=== PATIENT | male | born 1985 | race Caucasian/White ===

== ENCOUNTER 2019-04-18 18:42 | Inpatient (IN) | payer OTHER ==
[2019-04-18 21:17] VITALS: BMI 25.3
--- NOTE | 2019-04-18 21:53 | HP ---
COWS - Scale Resting Pulse: 0= [place] 80 or Below Sweatin=Flushed/Facial Moisture Restless Observation: 1= Difficult to Sit Still Pupil Size: 1= Pupils >than Normal Bone or Joint Aches: 4=Acute Joint/Muscle Pain Runny Nose/ Eye Tearin= Runny Nose/Eyes GI Upset > 30mins: 3= Vomiting/Diarrhea (vomiting x 3, [id number] x 2) Tremor Observation: 2= Slight Tremor Visible Yawning Observation: 1= 1-2x During Session Anxiety or Irritability: 2=Irritable/Anxious Goose Flesh Skin: 0=Smooth Skin COWS Score: 18 CIWA Score - Admission Criteria OASAS Guidelines: Admission for Medically Managed Detox: Requires at least one of the followin. CIWA greater than 12 2. Seizures within the past 24 hours 3. Delirium tremens within the past 24 hours 4. Hallucinations within the past 24 hours 5. Acute intervention needed for co occurring medical disorder 6. Acute intervention needed for co occurring psychiatric disorder 7. Severe withdrawal that cannot be handled at a lower level of care (continued vomiting, continued diarrhea, abnormal vital signs) requiring intravenous medication and/or fluids 8. Admission ROS [facility] Chief Complaint: Heroin withdrawal symptoms Allergies/Adverse Reactions: Allergies Allergy/AdvReac Type Severity Reaction Status Date / Time No Known Allergies Allergy Verified 04/18/19 23:27 History of Present Illness: 33 years old male with 8 years of heroin dependence is seeking admission to detox. Patient reports 5 years of sobriety. He reports history of seizures, GERD , Hyperlipidemia and anxiety. Patient denies suicide attempt and suicidal ideation at this time Exam Limitations: No Limitations - Ebola screening Have you traveled outside of the country in the last 21 days: No (N) Have you had contact with anyone from an Ebola affected area: No Do you have a fever: No - Review of Systems Constitutional: Chills, Malaise, Night Sweats, Changes in sleep EENT: reports: No Symptoms Reported, Nose Congestion Respiratory: reports: No Symptoms reported Cardiac: reports: No Symptoms Reported GI: reports: Poor Appetite, Poor Fluid Intake, Vomiting, Abdominal cramping : reports: No Symptoms Reported Musculoskeletal: reports: Back Pain, Joint Pain, Muscle Pain, Neck Pain Integumentary: reports: Dryness, Flushing Neuro: reports: Headache, Tremors, Weakness Endocrine: reports: No Symptoms Reported Hematology: reports: No Symptoms Reported Psychiatric: reports: Anxious, Depressed Other Systems: Reviewed and Negative Patient History - Patient Medical History Hx Anemia: No Hx Asthma: No Hx Chronic Obstructive Pulmonary Disease (COPD): No Hx Cancer: No Hx Cardiac Disorders: No Hx Congestive Heart Failure: No Hx Hypertension: No Hx Hypercholesterolemia: Yes (Not on medication) Hx Pacemaker: No HX Cerebrovascular Accident: No Hx Seizures: Yes (Klonopin and Keppra) Hx Gastrointestinal Disorders: Yes (GERD - Not on [id number]) Hx Human Immunodeficiency Virus (HIV): No (Negative 2018) Hx Depression: Yes (Not on medication) Hx Suicide Attempt: No (Denies suicidal ideatio at this time) - Patient Surgical History Past Surgical History: No - PPD History Previous Implant?: Yes Documented Results: Negative w/o proof Implanted On Prior [facility] Admission?: No PPD to be Administered?: Yes - Reproductive History Patient is a Female of Child Bearing Age (11 -55 yrs old): No (male) - Smoking Cessation Smoking history: Current every day smoker Have you smoked in the past 12 months: Yes Aproximately how many cigarettes per day: 4 Hx Chewing Tobacco Use: No Initiated information on smoking cessation: Yes 'Breaking Loose' booklet given: 04/18/19 - Substance & Tx. History Hx Alcohol Use: No Hx Substance Use: Yes Substance Use Type: Cocaine, Heroin, Marijuana, Opiates Hx Substance Use Treatment: Yes (Unknown) - Substances abused Cocaine Substance route: Injection Frequency: 3-6 times per week Amount used: 30 cc Age of first use: 18 Date of last use: 04/18/19 Heroin Substance route: Inhalation Frequency: Daily Amount used: 1 gram Age of first use: 28 Date of last use: 04/18/19 Family Disease History - Family Disease History Family History: Denies Admission Physical Exam BHS - Vital Signs Vital Signs: Vital Signs - 24 hr 04/18/19 21:08 Temperature 97.1 F L Pulse Rate 63 Respiratory 18 Rate Blood Pressure 131/67 - Physical General Appearance: Yes: Severe Distress, Tremorous, Anxious HEENTM: Yes: Within Normal Limits, Normal Voice Respiratory: Yes: Lungs Clear, Normal Breath Sounds, No Respiratory Distress Neck: Yes: Supple Breast: Yes: Breast Exam Deferred Cardiology: Yes: Regular Rhythm, Regular Rate Abdominal: Yes: Normal Bowel Sounds Genitourinary: Yes: Within Normal Limits Back: Yes: Normal Inspection Musculoskeletal: Yes: Within Normal Limits, Gait Steady Extremities: Yes: Tremors Neurological: Yes: Normal Response Integumentary: Yes: Warm Lymphatic: Yes: Within Normal Limits - Diagnostic (1) Alcohol dependence with uncomplicated withdrawal Current Visit: Yes Status: Acute (2) Seizure Current Visit: Yes Status: Chronic (3) Hyperlipidemia Current Visit: Yes Status: Chronic Qualifiers: Hyperlipidemia type: unspecified Qualified Code(s): E78.5 - Hyperlipidemia , unspecified (4) Anxiety Current Visit: Yes Status: Chronic (5) GERD (gastroesophageal reflux disease) Current Visit: Yes Status: Chronic Qualifiers: Esophagitis presence: without esophagitis Qualified Code(s): K21.9 - Gastro -esophageal reflux disease without esophagitis Cleared for Admission S - Detox or Rehab [facility] Level of Care: Medically Managed Detox Regimen/Protocol: Methadone Breathalyzer - Breathalyzer Breathalyzer: 0 Urine Drug Screen - Test Device Lot number: [id number] Expiration date: 01/24/21 - Control Is test valid?: Yes - Results Drug screen NEGATIVE: No Urine drug screen results: THC-Marijuana, OLIVIER-Cocaine, FEN-Fentanyl, MOP-Opiates , OXY-Oxycodone, BZO-Benzodiazepines Inpatient Rehab Admission - Rehab Decision to Admit Inpatient rehab admission?: No
[2019-04-18] MEDS ORDERED: NICOTINE POLACRILEX 2 MG GUM BUC PRN (22:03)
[2019-04-18] MEDS ORDERED: MAGNESIUM CITRATE 300 ML BOTTLE PO PRN (22:03)
[2019-04-18] MEDS ORDERED: IBUPROFEN 400 MG TABLET (FP) PO PRN (22:03)
[2019-04-18] MEDS ORDERED: MENTHOL/PHENOL 1 EACH UD MM PRN (22:03)
[2019-04-18] MEDS ORDERED: MAG HYDROX/AL HYDROX/SIMETH 30 ML UNIT-DOSE CUP PO PRN (22:03)
[2019-04-18] MEDS ORDERED: BISMUTH SUBSALICYLATE 524 MG/30 ML UD PO PRN (22:03)
[2019-04-18] MEDS ORDERED: cloNIDine HCL 0.1 MG TABLET PO PRN (22:03)
[2019-04-18] MEDS ORDERED: MAGNESIUM HYDROX 2400MG/30ML ORAL SUSPENSION 30 ML CUP PO PRN (22:03)
[2019-04-18] MEDS ORDERED: ACETAMINOPHEN 325 MG TABLET (FP) PO PRN ×2 (22:03)
[2019-04-18] MEDS ORDERED: METHADONE HCL 10 MG TABLET (FOR DETOX USE ONLY) PO ONE (22:03)
[2019-04-18] MEDS ORDERED: levETIRAcetam 500 MG TABLET (FP) PO SCH (22:45)
[2019-04-18] MEDS: METHOCARBAMOL 500 MG TABLET PO PRN (23:22)
[2019-04-18] MEDS: hydrOXYzine HCL 25 MG TABLET (FP) PO PRN (23:24)
[2019-04-19] MEDS ORDERED: METHADONE HCL 5 MG TABLET (FOR DETOX USE ONLY) ONE (08:36)
[2019-04-19] MEDS ORDERED: METHADONE HCL 10 MG TABLET (FOR DETOX USE ONLY) ONE (08:36)
[2019-04-19] MEDS ORDERED: METHADONE (DETOX) 20 MG, METHADONE (DETOX) 5 MG PO ONE (10:00)
[2019-04-19] MEDS: PRENATAL VITAMINS W/ FOLIC ACID TABLET (FP) PO SCH (10:14)
[2019-04-19] MEDS: NICOTINE 14 MG/24 HOURS TOPICAL PATCH TD SCH (10:16)
[2019-04-19 11:03] LABS: HEMATOCRIT 37.5 % (35.4-49); HEMOGLOBIN 12.5 GM/dL (11.7-16.9); MCH 27.9 pg (25.7-33.7); MCHC 33.5 g/dl (32.0-35.9); MEAN CELL VOLUME 83.3 fl (80-96); MEAN PLT VOLUME 10.5 fl (7.5-11.1); RDW 14.4 % (11.9-15.9); WHITE BLOOD COUNT 6.7 K/mm3 (4.0-10.0)
[2019-04-19 11:10] LABS: ALBUMIN 3.3 g/dl (3.4-5.0); BILIRUBIN,TOTAL 0.4 mg/dL (0.2-1); BLOOD UREA NITROGEN 10.6 mg/dL (7-18); CREATININE 0.9 mg/dL (0.55-1.3); POTASSIUM 4.4 mmol/L (3.5-5.1); TOT PROT 6.3 g/dl (6.4-8.2)
[2019-04-19 11:26] LABS: PLATELET COUNT 186 K/MM3 (134-434)
[2019-04-19] MEDS: levETIRAcetam 500 MG TABLET (FP) PO SCH ×2 (12:10→22:50)
--- NOTE | 2019-04-19 12:20 | PN ---
BHS COWS - Scale Resting Pulse: 0= [place] 80 or Below Sweatin= Chills/Flushing Restless Observation: 0= Sits Still Pupil Size: 0= Normal to Room Light Bone or Joint Aches: 2= Severe Diffuse Aches Runny Nose/ Eye Tearin= Nasal Congestion GI Upset > 30mins: 0= None Tremor Observation of Outstretched Hands: 0= None Yawning Observation: 1= 1-2x During Session Anxiety or Irritability: 2=Irritable/Anxious Goose Flesh Skin: 3=Piloerection COWS Score: 10 BHS Progress Note (SOAP) Subjective: Anxious, Sweating, Fatigue, Body Aches. Objective: PATIENT A & O X 3. IN NO ACUTE DISTRESS. 04/19/19 12:17 Vital Signs Temperature 97.3 F L 04/19/19 09:11 Pulse Rate 50 L 04/19/19 09:11 Respiratory Rate 16 04/19/19 09:11 Blood Pressure 96/58 L 04/19/19 09:11 O2 Sat by Pulse Oximetry (%) Laboratory Tests 04/19/19 04/19/19 09:35 09:35 WBC 6.7 RBC 4.50 Hgb 12.5 Hct 37.5 MCV 83.3 MCH 27.9 MCHC 33.5 RDW 14.4 Plt Count 186 MPV 10.5 Sodium 142 Potassium 4.4 Chloride 106 Carbon Dioxide 31 Anion Gap 4 L BUN 10.6 Creatinine 0.9 Est GFR (CKD-EPI)AfAm 129.61 Est GFR (CKD-EPI)NonAf 111.83 Random Glucose 84 Calcium 9.0 Total Bilirubin 0.4 AST 19 ALT 24 Alkaline Phosphatase 78 Total Protein 6.3 L Albumin 3.3 L LABS NOTED. RESULTS OF DETOX ADMISSION LEVETIRACETAM, CLONAZEPAM, AND RPR PENDING. 04/19/19 12:19 Assessment: 04/19/19 12:19 WITHDRAWAL SYMPTOMS. 04/19/19 12:21 Plan: CONTINUE DETOX. INCREASE DAILY PO WATER INTAKE.
[2019-04-19] MEDS: THIAMINE HCL 100 MG TABLET (FP) PO SCH (22:50)
--- NOTE | 2019-04-20 09:21 | PN ---
BHS COWS - Scale Resting Pulse: 0= [place] 80 or Below Sweatin= Chills/Flushing Restless Observation: 0= Sits Still Pupil Size: 1= Pupils >than Normal Bone or Joint Aches: 1= Mild Discomfort Runny Nose/ Eye Tearin= Nasal Congestion GI Upset > 30mins: 1= Stomach Cramp Tremor Observation of Outstretched Hands: 1= Tremor [place], Not Seen Yawning Observation: 0= None Anxiety or Irritability: 2=Irritable/Anxious Goose Flesh Skin: 0=Smooth Skin COWS Score: 8 S Progress Note (SOAP) Subjective: 33 years old male admitted on 04/18/19 for acute opiate withdrawal sx management doing well with methadone detox regimen tolerate food and fluid well feeling tired and irritable limited conversation with staff provide information on medication assisted treatment as option Objective: 04/20/19 09:20 Vital Signs Temperature 96.8 F L 04/20/19 09:11 Pulse Rate 57 L 04/20/19 09:11 Respiratory Rate 18 04/20/19 09:11 Blood Pressure 108/60 04/20/19 09:11 O2 Sat by Pulse Oximetry (%) Laboratory Last Values WBC 6.7 K/mm3 (4.0-10.0) 04/19/19 09:35 RBC 4.50 M/mm3 (4.00-5.60) 04/19/19 09:35 Hgb 12.5 GM/dL (11.7-16.9) 04/19/19 09:35 Hct 37.5 % (35.4-49) 04/19/19 09:35 MCV 83.3 fl (80-96) 04/19/19 09:35 MCH 27.9 pg (25.7-33.7) 04/19/19 09:35 MCHC 33.5 g/dl (32.0-35.9) 04/19/19 09:35 RDW 14.4 % (11.9-15.9) 04/19/19 09:35 Plt Count 186 K/MM3 (134-434) 04/19/19 09:35 MPV 10.5 fl (7.5-11.1) 04/19/19 09:35 Sodium 142 mmol/L (136-145) 04/19/19 09:35 Potassium 4.4 mmol/L (3.5-5.1) 04/19/19 09:35 Chloride 106 mmol/L (98-107) 04/19/19 09:35 Carbon Dioxide 31 mmol/L (21-32) 04/19/19 09:35 Anion Gap 4 MMOL/L (8-16) L 04/19/19 09:35 BUN 10.6 mg/dL (7-18) 04/19/19 09:35 Creatinine 0.9 mg/dL (0.55-1.3) 04/19/19 09:35 Est GFR (CKD-EPI)AfAm 129.61 04/19/19 09:35 Est GFR (CKD-EPI)NonAf 111.83 04/19/19 09:35 Random Glucose 84 mg/dL (74-106) 04/19/19 09:35 Calcium 9.0 mg/dL (8.5-10.1) 04/19/19 09:35 Total Bilirubin 0.4 mg/dL (0.2-1) 04/19/19 09:35 AST 19 U/L (15-37) 04/19/19 09:35 ALT 24 U/L (13-61) 04/19/19 09:35 Alkaline Phosphatase 78 U/L (45-117) 04/19/19 09:35 Total Protein 6.3 g/dl (6.4-8.2) L 04/19/19 09:35 Albumin 3.3 g/dl (3.4-5.0) L 04/19/19 09:35 RPR Titer Nonreactive (NONREACTIVE) 04/19/19 09:35 lab noted Assessment: 04/20/19 09:21 opiate withdrawal sx Plan: continue methadone detox regimen
[2019-04-20] MEDS ORDERED: METHADONE HCL 10 MG TABLET (FOR DETOX USE ONLY) PO ONE ×2 (10:00→16:59)
[2019-04-20] MEDS: levETIRAcetam 500 MG TABLET (FP) PO SCH ×2 (13:10→22:50)
[2019-04-20] MEDS: NICOTINE 14 MG/24 HOURS TOPICAL PATCH TD SCH (13:11)
[2019-04-20] MEDS: PRENATAL VITAMINS W/ FOLIC ACID TABLET (FP) PO SCH (13:12)
[2019-04-20] MEDS: hydrOXYzine HCL 25 MG TABLET (FP) PO PRN (16:59)
[2019-04-20] MEDS: METHOCARBAMOL 500 MG TABLET PO PRN (16:59)
--- NOTE | 2019-04-20 17:02 | PN ---
BHS Progress Note Note: pt reported to not receive am dose methadone 20mg 1x dose 20mg re ordered resume taper tomorrow
[2019-04-20] MEDS: THIAMINE HCL 100 MG TABLET (FP) PO SCH (22:50)
[2019-04-21] MEDS: hydrOXYzine HCL 25 MG TABLET (FP) PO PRN ×2 (00:33→22:13)
[2019-04-21] MEDS ORDERED: METHADONE (DETOX) 10 MG, METHADONE (DETOX) 5 MG PO ONE ×2 (10:00→17:02)
--- NOTE | 2019-04-21 10:46 | PN ---
S COWS - Scale Resting Pulse: 0= [place] 80 or Below Sweatin= Chills/Flushing Restless Observation: 0= Sits Still Pupil Size: 1= Pupils >than Normal Bone or Joint Aches: 1= Mild Discomfort Runny Nose/ Eye Tearin= None GI Upset > 30mins: 1= Stomach Cramp Tremor Observation of Outstretched Hands: 1= Tremor [place], Not Seen Yawning Observation: 1= 1-2x During Session Anxiety or Irritability: 1=Feels Anxious/Irritable Goose Flesh Skin: 0=Smooth Skin COWS Score: 7 S Progress Note (SOAP) Subjective: 33 years old male admitted on 04/18/19 for acute opiate withdrawal sx management doing well with methadone detox regimen limited conversation with staff resting on bed prefers stay in bed today Objective: 04/21/19 10:44 Vital Signs Temperature 97.6 F 04/21/19 06:08 Pulse Rate 44 L 04/21/19 06:08 Respiratory Rate 18 04/21/19 06:30 Blood Pressure 101/57 L 04/21/19 06:08 O2 Sat by Pulse Oximetry (%) Laboratory Last Values WBC 6.7 K/mm3 (4.0-10.0) 04/19/19 09:35 RBC 4.50 M/mm3 (4.00-5.60) 04/19/19 09:35 Hgb 12.5 GM/dL (11.7-16.9) 04/19/19 09:35 Hct 37.5 % (35.4-49) 04/19/19 09:35 MCV 83.3 fl (80-96) 04/19/19 09:35 MCH 27.9 pg (25.7-33.7) 04/19/19 09:35 MCHC 33.5 g/dl (32.0-35.9) 04/19/19 09:35 RDW 14.4 % (11.9-15.9) 04/19/19 09:35 Plt Count 186 K/MM3 (134-434) 04/19/19 09:35 MPV 10.5 fl (7.5-11.1) 04/19/19 09:35 Sodium 142 mmol/L (136-145) 04/19/19 09:35 Potassium 4.4 mmol/L (3.5-5.1) 04/19/19 09:35 Chloride 106 mmol/L (98-107) 04/19/19 09:35 Carbon Dioxide 31 mmol/L (21-32) 04/19/19 09:35 Anion Gap 4 MMOL/L (8-16) L 04/19/19 09:35 BUN 10.6 mg/dL (7-18) 04/19/19 09:35 Creatinine 0.9 mg/dL (0.55-1.3) 04/19/19 09:35 Est GFR (CKD-EPI)AfAm 129.61 04/19/19 09:35 Est GFR (CKD-EPI)NonAf 111.83 04/19/19 09:35 Random Glucose 84 mg/dL (74-106) 04/19/19 09:35 Calcium 9.0 mg/dL (8.5-10.1) 04/19/19 09:35 Total Bilirubin 0.4 mg/dL (0.2-1) 04/19/19 09:35 AST 19 U/L (15-37) 04/19/19 09:35 ALT 24 U/L (13-61) 04/19/19 09:35 Alkaline Phosphatase 78 U/L (45-117) 04/19/19 09:35 Total Protein 6.3 g/dl (6.4-8.2) L 04/19/19 09:35 Albumin 3.3 g/dl (3.4-5.0) L 04/19/19 09:35 RPR Titer Nonreactive (NONREACTIVE) 04/19/19 09:35 lab noted Assessment: 04/21/19 10:44 opiate withdrawal sx alert irritable agitated Plan: continue methadone detox regimen
[2019-04-21] MEDS: NICOTINE 14 MG/24 HOURS TOPICAL PATCH TD SCH (12:09)
[2019-04-21] MEDS: PRENATAL VITAMINS W/ FOLIC ACID TABLET (FP) PO SCH (12:09)
[2019-04-21] MEDS: levETIRAcetam 500 MG TABLET (FP) PO SCH (12:09)
--- NOTE | 2019-04-21 13:03 | EKG ---
Test Reason : Blood Pressure : / mmHG Vent. Rate : 051 BPM Atrial Rate : 051 BPM P-R Int : 168 ms QRS Dur : 084 ms QT Int : 438 ms P-R-T Axes : 056 055 049 degrees QTc Int : 403 ms SINUS BRADYCARDIA OTHERWISE NORMAL ECG NO PREVIOUS ECGS AVAILABLE Confirmed by SUNG TERRELL, JEAN ([id number]) on 04/21/2019 1:02:24 PM Referred By: Eb Ramirez Confirmed By:JEAN ALMARAZ MD
[2019-04-21] MEDS ORDERED: METHADONE HCL 10 MG TABLET (FOR DETOX USE ONLY) ONE (16:31)
[2019-04-21] MEDS ORDERED: METHADONE HCL 5 MG TABLET (FOR DETOX USE ONLY) ONE (16:32)
[2019-04-21] MEDS: THIAMINE HCL 100 MG TABLET (FP) PO SCH (22:13)
[2019-04-21] MEDS: MELATONIN 5 MG TABLETS PO PRN (22:13)
[2019-04-22] MEDS: levETIRAcetam 500 MG TABLET (FP) PO SCH ×3 (01:23→22:09)
[2019-04-22] MEDS ORDERED: METHADONE HCL 10 MG TABLET (FOR DETOX USE ONLY) PO ONE ×2 (10:00→17:02)
--- NOTE | 2019-04-22 10:25 | PN ---
BHS COWS - Scale Resting Pulse: 0= [place] 80 or Below Sweatin= Chills/Flushing Restless Observation: 0= Sits Still Pupil Size: 0= Normal to Room Light Bone or Joint Aches: 1= Mild Discomfort Runny Nose/ Eye Tearin= None GI Upset > 30mins: 0= None Tremor Observation of Outstretched Hands: 1= Tremor [place], Not Seen Yawning Observation: 0= None Anxiety or Irritability: 1=Feels Anxious/Irritable Goose Flesh Skin: 0=Smooth Skin COWS Score: 4 BHS Progress Note (SOAP) Subjective: c/o methadone dosage "getting lower and lower" discuss methadone detox regimen and purpose of detox process encourage the patient to follow up with methadone maintenance program that methadone dosage could be tapered up to an appropriate dosage patient refuses to take methadone in the morning schedule adjusted to meet the patient's schedule Objective: 04/22/19 10:26 Vital Signs Temperature 97.4 F L 04/22/19 09:14 Pulse Rate 70 04/22/19 09:14 Respiratory Rate 18 04/22/19 09:14 Blood Pressure 117/68 04/22/19 09:14 O2 Sat by Pulse Oximetry (%) Laboratory Last Values WBC 6.7 K/mm3 (4.0-10.0) 04/19/19 09:35 RBC 4.50 M/mm3 (4.00-5.60) 04/19/19 09:35 Hgb 12.5 GM/dL (11.7-16.9) 04/19/19 09:35 Hct 37.5 % (35.4-49) 04/19/19 09:35 MCV 83.3 fl (80-96) 04/19/19 09:35 MCH 27.9 pg (25.7-33.7) 04/19/19 09:35 MCHC 33.5 g/dl (32.0-35.9) 04/19/19 09:35 RDW 14.4 % (11.9-15.9) 04/19/19 09:35 Plt Count 186 K/MM3 (134-434) 04/19/19 09:35 MPV 10.5 fl (7.5-11.1) 04/19/19 09:35 Sodium 142 mmol/L (136-145) 04/19/19 09:35 Potassium 4.4 mmol/L (3.5-5.1) 04/19/19 09:35 Chloride 106 mmol/L (98-107) 04/19/19 09:35 Carbon Dioxide 31 mmol/L (21-32) 04/19/19 09:35 Anion Gap 4 MMOL/L (8-16) L 04/19/19 09:35 BUN 10.6 mg/dL (7-18) 04/19/19 09:35 Creatinine 0.9 mg/dL (0.55-1.3) 04/19/19 09:35 Est GFR (CKD-EPI)AfAm 129.61 04/19/19 09:35 Est GFR (CKD-EPI)NonAf 111.83 04/19/19 09:35 Random Glucose 84 mg/dL (74-106) 04/19/19 09:35 Calcium 9.0 mg/dL (8.5-10.1) 04/19/19 09:35 Total Bilirubin 0.4 mg/dL (0.2-1) 04/19/19 09:35 AST 19 U/L (15-37) 04/19/19 09:35 ALT 24 U/L (13-61) 04/19/19 09:35 Alkaline Phosphatase 78 U/L (45-117) 04/19/19 09:35 Total Protein 6.3 g/dl (6.4-8.2) L 04/19/19 09:35 Albumin 3.3 g/dl (3.4-5.0) L 04/19/19 09:35 Levetiracetam 19.5 MCG/ML (10.0-40.0) 04/19/19 09:35 RPR Titer Nonreactive (NONREACTIVE) 04/19/19 09:35 lab noted Assessment: 04/22/19 10:27 opiate withdrawal sx alert oriented x 3 speech clearly goal directed behavior ambulating on hallway steady gait Plan: continue methadone detox regimen
[2019-04-22] MEDS: NICOTINE 14 MG/24 HOURS TOPICAL PATCH TD SCH (10:55)
[2019-04-22] MEDS: PRENATAL VITAMINS W/ FOLIC ACID TABLET (FP) PO SCH (10:55)
[2019-04-22] MEDS: hydrOXYzine HCL 25 MG TABLET (FP) PO PRN (20:29)
[2019-04-22] MEDS: MELATONIN 5 MG TABLETS PO PRN (22:09)
[2019-04-22] MEDS: THIAMINE HCL 100 MG TABLET (FP) PO SCH (22:09)
[2019-04-23] MEDS ORDERED: METHADONE HCL 5 MG TABLET (FOR DETOX USE ONLY) PO ONE (06:00)
[2019-04-23 06:12] VITALS: BP 100/46; PULSE 46; TEMP 97.7
--- NOTE | 2019-04-23 09:53 | DS ---
[facility] Detox Discharge Summary Admission Date: 04/18/19 Discharge Date: 04/23/19 - History Present History: Opioid Dependence Additional Comments: 33 years old male first admitted to [facility] on 04/18/19 for acute opiate withdrawal sx management doing well [facility] methadone detox regimen perfers medication to be taken afternoon modified schedule to meet the patient's preference no complication through out the detox stay patient is alert oriented x 3 steady gait speech clearly coherently had breakfast and showered strong recommend the patient seeking medication assisted treatment program for opiate dependent Pertinent Past History: seizure treated with keppra hiv treated with tivicay encourage the patient follow up with infectious disease specialist for HIV status and neurologist for seizure event - Physical Exam Results Vital Signs: Vital Signs Temperature 97.7 F 04/23/19 06:12 Pulse Rate 46 L 04/23/19 06:12 Respiratory Rate 18 04/23/19 06:12 Blood Pressure 100/46 L 04/23/19 06:12 O2 Sat by Pulse Oximetry (%) Pertinent Admission Physical Exam Findings: opiate withdrawal sx Laboratory Last Values WBC 6.7 K/mm3 (4.0-10.0) 04/19/19 09:35 RBC 4.50 M/mm3 (4.00-5.60) 04/19/19 09:35 Hgb 12.5 GM/dL (11.7-16.9) 04/19/19 09:35 Hct 37.5 % (35.4-49) 04/19/19 09:35 MCV 83.3 fl (80-96) 04/19/19 09:35 MCH 27.9 pg (25.7-33.7) 04/19/19 09:35 MCHC 33.5 g/dl (32.0-35.9) 04/19/19 09:35 RDW 14.4 % (11.9-15.9) 04/19/19 09:35 Plt Count 186 K/MM3 (134-434) 04/19/19 09:35 MPV 10.5 fl (7.5-11.1) 04/19/19 09:35 Sodium 142 mmol/L (136-145) 04/19/19 09:35 Potassium 4.4 mmol/L (3.5-5.1) 04/19/19 09:35 Chloride 106 mmol/L (98-107) 04/19/19 09:35 Carbon Dioxide 31 mmol/L (21-32) 04/19/19 09:35 Anion Gap 4 MMOL/L (8-16) L 04/19/19 09:35 BUN 10.6 mg/dL (7-18) 04/19/19 09:35 Creatinine 0.9 mg/dL (0.55-1.3) 04/19/19 09:35 Est GFR (CKD-EPI)AfAm 129.61 04/19/19 09:35 Est GFR (CKD-EPI)NonAf 111.83 04/19/19 09:35 Random Glucose 84 mg/dL (74-106) 04/19/19 09:35 Calcium 9.0 mg/dL (8.5-10.1) 04/19/19 09:35 Total Bilirubin 0.4 mg/dL (0.2-1) 04/19/19 09:35 AST 19 U/L (15-37) 04/19/19 09:35 ALT 24 U/L (13-61) 04/19/19 09:35 Alkaline Phosphatase 78 U/L (45-117) 04/19/19 09:35 Total Protein 6.3 g/dl (6.4-8.2) L 04/19/19 09:35 Albumin 3.3 g/dl (3.4-5.0) L 04/19/19 09:35 Levetiracetam 19.5 MCG/ML (10.0-40.0) 04/19/19 09:35 Clonazepam None detected NG/ML (20-70) 04/19/19 09:35 RPR Titer Nonreactive (NONREACTIVE) 04/19/19 09:35 - Treatment Hospital Course: Detox Protocol Followed, Detoxed Safely, Responded well, Discharged Condition Good, Rehab Referral Accepted Patient has Accepted a Rehab Referral to: infectious disease specialist / medication assisted treatment program - Medication Discharge Medications: Ambulatory Orders levETIRAcetam [Keppra -] 1,500 mg PO BID #60 tablet 04/22/19 - Diagnosis (1) HIV (human immunodeficiency virus infection) Status: Chronic Qualifiers: HIV symptom status: asymptomatic Qualified Code(s): Z21 - Asymptomatic human immunodeficiency virus [HIV] infection status (2) Alcohol dependence with uncomplicated withdrawal Status: Acute (3) GERD (gastroesophageal reflux disease) Status: Chronic Qualifiers: Esophagitis presence: without esophagitis Qualified Code(s): K21.9 - Gastro -esophageal reflux disease without esophagitis (4) Seizure Status: Chronic - AMA Did Patient Leave Against Medical Advice: No COWS (PN) - Opiate Withdrawal Resting Pulse: 0= [place] 80 or Below Sweatin= No chills or Flushing Restless Observation: 0= Sits Still Pupil Size: 0= Normal to Room Light Bone or Joint Aches: 0= None Runny Nose/ Eye Tearin= None GI Upset > 30mins: 0= None Tremor Observation of Outstretched Hands: 1= Tremor [place], Not Seen Yawning Observation: 0= None Anxiety or Irritability: 1=Feels Anxious/Irritable Goose Flesh Skin: 0=Smooth Skin COWS Score: 2
== END 2019-04-23 08:10 | disposition home or self-care (01) | DRG 773 ==
LOC: YASAS 18:42 → Y3N 22:31
PROVIDERS: ADMIT Surgery; ATTEND Surgery
PROC: HZ2ZZZZ Detoxification Services for Substance Abuse Treatment (ICD-10-PCS; principal; 2019-04-18)
DX: F11.23 Opioid dependence with withdrawal (principal); F10.230 Alcohol dependence with withdrawal, uncomplicated; F17.210 Nicotine dependence, cigarettes, uncomplicated; Z21 Asymptomatic human immunodeficiency virus [HIV] infection status; K21.9 Gastro-esophageal reflux disease without esophagitis; G40.909 Epilepsy, unspecified, not intractable, without status epilepticus; E78.5 Hyperlipidemia, unspecified; Z59.0 Homelessness
CPT/HCPCS: 36415; 80053; 80177; 85027; 86593; 93005; 93010; G0480; J0735

== ENCOUNTER 2023-03-22 15:48 | Inpatient (IN) | payer OTHER ==
[2023-03-22 16:40] VITALS: BMI 21.1
[2023-03-22] MEDS ORDERED: guaiFENesin 600 MG TABLET.ER (FP) PO PRN (20:51)
[2023-03-22] MEDS ORDERED: NALOXONE HCL (KLOXXADO) 8 MG SPRAY NS PRN (20:51)
[2023-03-22] MEDS ORDERED: ONDANSETRON *ODT* 4 MG TABLET SL PRN (20:51)
[2023-03-22] MEDS ORDERED: BISMUTH SUBSALICYLATE 524 MG/30 ML PO PRN (20:51)
[2023-03-22] MEDS ORDERED: DICYCLOMINE HCL 10 MG CAPSULE PO PRN (20:51)
[2023-03-22] MEDS ORDERED: BENZONATATE 200 MG CAPSULE PO PRN (20:51)
[2023-03-22] MEDS ORDERED: IBUPROFEN 400 MG TABLET (FP) PO PRN (20:51)
[2023-03-22] MEDS ORDERED: IBUPROFEN 600 MG TABLET (FP) PO PRN (20:51)
[2023-03-22] MEDS ORDERED: POLYETHYLENE GLYCOL (HEALTHYLAX) 3350 17 GM PACKET PO PRN (20:51)
[2023-03-22] MEDS ORDERED: ACETAMINOPHEN 325 MG TABLET (FP) PO PRN (20:51)
[2023-03-22] MEDS ORDERED: LOPERAMIDE HCL 2 MG CAPSULE PO PRN (20:51)
[2023-03-22] MEDS ORDERED: MAGNESIUM HYDROX 2400MG/30ML ORAL SUSPENSION 30 ML CUP PO PRN (20:51)
[2023-03-22] MEDS ORDERED: NALOXONE HCL 0.4 MG/ML VIAL IM PRN (20:51)
[2023-03-22] MEDS ORDERED: MAG HYDROX/AL HYDROX/SIMETH 30 ML UNIT-DOSE CUP PO PRN (20:51)
[2023-03-22] MEDS ORDERED: BENZOCAINE/MENTHOL (CHLORASEPTIC ) LOZENGE MM PRN (20:51)
[2023-03-22] MEDS: MELATONIN 5 MG TABLETS PO SCH (23:20)
[2023-03-22] MEDS: THIAMINE HCL 100 MG TABLET (FP) PO SCH (23:21)
[2023-03-23 10:35] LABS: HEMATOCRIT 40.9 % (35.4-49); MCH 27.5 pg (25.7-33.7); MCHC 31.7 g/dl (32.0-35.9); MEAN CELL VOLUME 86.5 fl (80-96); MEAN PLT VOLUME 11.2 fl (7.5-11.1); PLATELET COUNT 177 10^3/uL (134-434); RBC 4.73 M/mm3 (4.00-5.60); RDW 14.3 % (11.9-15.9); WHITE BLOOD COUNT 6.8 K/mm3 (4.0-10.0)
[2023-03-23] MEDS: PRENATAL VITAMINS W/ FOLIC ACID TABLET (FP) PO SCH (10:58)
[2023-03-23] MEDS: NICOTINE 14 MG/24 HOURS TOPICAL PATCH TD SCH (10:59)
[2023-03-23] MEDS: METHOCARBAMOL 500 MG TABLET PO PRN ×2 (10:59→20:49)
[2023-03-23] MEDS: hydrOXYzine PAMOATE 25 MG CAPSULE (FP) PO PRN ×2 (10:59→20:48)
[2023-03-23 11:15] LABS: POTASSIUM 3.9 mmol/L (3.5-5.1)
[2023-03-23 11:23] LABS: BILIRUBIN,TOTAL 0.4 mg/dL (0.2-1); CALCIUM 8.5 mg/dL (8.5-10.1)
[2023-03-23 11:24] LABS: ALBUMIN 3.2 g/dl (3.4-5.0); BLOOD UREA NITROGEN 9.7 mg/dL (7-18)
[2023-03-23 11:28] LABS: CREATININE 0.8 mg/dL (0.55-1.3); TOT PROT 5.8 g/dl (6.4-8.2)
[2023-03-23] MEDS: BUPRENORPHINE/NALOXONE 2 MG/0.5 MG FILM PACKET SL SCH (21:12)
[2023-03-23] MEDS: MELATONIN 5 MG TABLETS PO SCH (22:57)
[2023-03-23] MEDS: levETIRAcetam 500 MG TABLET (FP) PO SCH (22:58)
[2023-03-23] MEDS: THIAMINE HCL 100 MG TABLET (FP) PO SCH (22:58)
[2023-03-24 09:22] VITALS: BP 121/77; PULSE 61; RESP 18; TEMP 97.6
[2023-03-24] MEDS: BUPRENORPHINE/NALOXONE 2 MG/0.5 MG FILM PACKET SL SCH (10:40)
[2023-03-24] MEDS: levETIRAcetam 500 MG TABLET (FP) PO SCH (10:40)
[2023-03-24] MEDS: NICOTINE 14 MG/24 HOURS TOPICAL PATCH TD SCH (10:40)
[2023-03-24] MEDS: METHOCARBAMOL 500 MG TABLET PO PRN (10:40)
[2023-03-24] MEDS: PRENATAL VITAMINS W/ FOLIC ACID TABLET (FP) PO SCH (10:40)
[2023-03-24] MEDS: hydrOXYzine PAMOATE 25 MG CAPSULE (FP) PO PRN (10:40)
== END 2023-03-24 12:44 | disposition left against medical advice (07) | DRG 770 ==
LOC: YASAS 15:48 → Y6N 20:23
PROVIDERS: ADMIT Allergy & Immunology; ATTEND Surgery
PROC: HZ2ZZZZ Detoxification Services for Substance Abuse Treatment (ICD-10-PCS; principal; 2023-03-22)
DX: F11.23 Opioid dependence with withdrawal (principal); F14.20 Cocaine dependence, uncomplicated; F13.10 Sedative, hypnotic or anxiolytic abuse, uncomplicated; F12.20 Cannabis dependence, uncomplicated; F17.210 Nicotine dependence, cigarettes, uncomplicated; F19.24 Other psychoactive substance dependence with psychoactive substance-induced mood disorder; E78.5 Hyperlipidemia, unspecified; G47.00 Insomnia, unspecified; G40.909 Epilepsy, unspecified, not intractable, without status epilepticus; K21.9 Gastro-esophageal reflux disease without esophagitis; M54.50 Low back pain, unspecified; Z56.0 Unemployment, unspecified; Z59.00 Homelessness unspecified; Z88.8 Allergy status to other drugs, medicaments and biological substances
CPT/HCPCS: 36415; 80053; 85027; 86780; 87635; 87811; 93005; 93010

== ENCOUNTER 2023-04-04 22:00 | Inpatient (IN) | payer OTHER ==
[2023-04-04 22:35] VITALS: BMI 25.0
[2023-04-04] MEDS ORDERED: NALOXONE HCL (KLOXXADO) 8 MG SPRAY NS PRN (23:00)
[2023-04-04] MEDS ORDERED: MAGNESIUM HYDROX 2400MG/30ML ORAL SUSPENSION 30 ML CUP PO PRN (23:00)
[2023-04-04] MEDS ORDERED: ONDANSETRON *ODT* 4 MG TABLET SL PRN (23:00)
[2023-04-04] MEDS ORDERED: IBUPROFEN 400 MG TABLET (FP) PO PRN (23:00)
[2023-04-04] MEDS ORDERED: BENZONATATE 200 MG CAPSULE PO PRN (23:00)
[2023-04-04] MEDS ORDERED: ACETAMINOPHEN 325 MG TABLET (FP) PO PRN (23:00)
[2023-04-04] MEDS ORDERED: POLYETHYLENE GLYCOL (HEALTHYLAX) 3350 17 GM PACKET PO PRN (23:00)
[2023-04-04] MEDS ORDERED: NICOTINE POLACRILEX 2 MG GUM BUC PRN (23:00)
[2023-04-04] MEDS ORDERED: guaiFENesin 600 MG TABLET.ER (FP) PO PRN (23:00)
[2023-04-04] MEDS ORDERED: IBUPROFEN 600 MG TABLET (FP) PO PRN (23:00)
[2023-04-04] MEDS ORDERED: BISMUTH SUBSALICYLATE 524 MG/30 ML PO PRN (23:00)
[2023-04-04] MEDS ORDERED: BENZOCAINE/MENTHOL (CHLORASEPTIC ) LOZENGE MM PRN (23:00)
[2023-04-04] MEDS ORDERED: hydrOXYzine PAMOATE 25 MG CAPSULE (FP) PO PRN (23:00)
[2023-04-04] MEDS ORDERED: NALOXONE HCL 0.4 MG/ML VIAL IM PRN (23:00)
[2023-04-04] MEDS ORDERED: LOPERAMIDE HCL 2 MG CAPSULE PO PRN (23:00)
[2023-04-04] MEDS ORDERED: METHOCARBAMOL 500 MG TABLET PO PRN (23:00)
[2023-04-04] MEDS ORDERED: MAG HYDROX/AL HYDROX/SIMETH 30 ML UNIT-DOSE CUP PO PRN (23:00)
[2023-04-04] MEDS ORDERED: DICYCLOMINE HCL 10 MG CAPSULE PO PRN (23:00)
[2023-04-05] MEDS: PRENATAL VITAMINS W/ FOLIC ACID TABLET (FP) PO SCH (10:41)
[2023-04-05] MEDS: NICOTINE 14 MG/24 HOURS TOPICAL PATCH TD SCH (10:41)
[2023-04-05] MEDS: levETIRAcetam 500 MG TABLET (FP) PO SCH ×2 (10:41→23:10)
[2023-04-05] MEDS ORDERED: BUPRENORPHINE HCL 150 MCG, BUPRENORPHINE HCL 75 MCG BC PRN (13:41)
[2023-04-05] MEDS ORDERED: BUPRENORPHINE HCL 150 MCG, BUPRENORPHINE HCL 75 MCG BC ONE (13:41)
[2023-04-05 13:45] LABS: HEMATOCRIT 45.9 % (35.4-49); HEMOGLOBIN 14.8 GM/dL (11.7-16.9); MCH 28.1 pg (25.7-33.7); MCHC 32.2 g/dl (32.0-35.9); MEAN CELL VOLUME 87.2 fl (80-96); PLATELET COUNT 227 10^3/uL (134-434); RBC 5.27 M/mm3 (4.00-5.60); RDW 14.3 % (11.9-15.9); WHITE BLOOD COUNT 8.6 K/mm3 (4.0-10.0)
[2023-04-05] MEDS ORDERED: diazePAM 5 MG TABLET PO PRN (13:51)
[2023-04-05 13:55] LABS: POTASSIUM 4.1 mmol/L (3.5-5.1)
[2023-04-05 13:57] LABS: BLOOD UREA NITROGEN 12.6 mg/dL (7-18); CALCIUM 9.2 mg/dL (8.5-10.1)
[2023-04-05 14:01] LABS: CREATININE 0.8 mg/dL (0.55-1.3)
[2023-04-05 14:02] LABS: BILIRUBIN,TOTAL 0.4 mg/dL (0.2-1); TOT PROT 6.8 g/dl (6.4-8.2)
[2023-04-05 14:10] LABS: ALBUMIN 3.9 g/dl (3.4-5.0)
[2023-04-05] MEDS ORDERED: MELATONIN 5 MG TABLETS PO SCH (22:00)
[2023-04-05] MEDS ORDERED: THIAMINE HCL 100 MG TABLET (FP) PO SCH (22:00)
[2023-04-06] MEDS ORDERED: BUPRENORPHINE HCL 150 MCG, BUPRENORPHINE HCL 75 MCG BC PRN
[2023-04-06] MEDS ORDERED: diazePAM 5 MG TABLET PO PRN (00:01)
[2023-04-06] MEDS ORDERED: BUPRENORPHINE HCL 150 MCG, BUPRENORPHINE HCL 75 MCG BC SCH (06:00)
[2023-04-06] MEDS ORDERED: BUPRENORPHINE/NALOXONE 2 MG/0.5 MG FILM PACKET SL SCH (12:04)
[2023-04-06] MEDS: levETIRAcetam 500 MG TABLET (FP) PO SCH (12:10)
[2023-04-06] MEDS: NICOTINE 14 MG/24 HOURS TOPICAL PATCH TD SCH (12:11)
[2023-04-06] MEDS: PRENATAL VITAMINS W/ FOLIC ACID TABLET (FP) PO SCH (12:11)
[2023-04-06] MEDS ORDERED: BUPRENORPHINE/NALOXONE 8 MG/2 MG FILM PACKET SL ONE (12:34)
[2023-04-06] MEDS ORDERED: BUPRENORPHINE/NALOXONE 2 MG/0.5 MG FILM PACKET SL ONE (12:39)
[2023-04-06 13:15] VITALS: BP 112/87; PULSE 84; RESP 18; TEMP 98.4
[2023-04-06] MEDS ORDERED: BUPRENORPHINE/NALOXONE 4 MG/1 MG FILM PACKET SL SCH (18:00)
[2023-04-07] MEDS ORDERED: BUPRENORPHINE HCL 450 MCG FILM BC PRN
[2023-04-07] MEDS ORDERED: diazePAM 5 MG TABLET PO PRN (00:05)
[2023-04-07] MEDS ORDERED: BUPRENORPHINE HCL 450 MCG FILM BC SCH (06:00)
[2023-04-07] MEDS ORDERED: BUPRENORPHINE/NALOXONE 2 MG/0.5 MG FILM PACKET SL ONE (22:00)
[2023-04-08] MEDS ORDERED: diazePAM 5 MG TABLET PO PRN (00:01)
[2023-04-08] MEDS ORDERED: BUPRENORPHINE/NALOXONE 8 MG/2 MG FILM PACKET SL ONE (06:00)
[2023-04-08] MEDS ORDERED: BUPRENORPHINE/NALOXONE 4 MG/1 MG FILM PACKET SL SCH (06:00)
[2023-04-09] MEDS ORDERED: BUPRENORPHINE/NALOXONE 8 MG/2 MG FILM PACKET SL ONE (06:00)
== END 2023-04-06 17:50 | disposition left against medical advice (07) | DRG 770 ==
LOC: YASAS 22:00 → Y6N 23:22
PROVIDERS: ADMIT Allergy & Immunology; ATTEND Psychiatry & Neurology Pain Medicine
PROC: HZ2ZZZZ Detoxification Services for Substance Abuse Treatment (ICD-10-PCS; principal; 2023-04-04)
DX: F11.20 Opioid dependence, uncomplicated (principal); F16.90 Hallucinogen use, unspecified, uncomplicated; F12.90 Cannabis use, unspecified, uncomplicated; F17.210 Nicotine dependence, cigarettes, uncomplicated; F20.9 Schizophrenia, unspecified; F19.280 Other psychoactive substance dependence with psychoactive substance-induced anxiety disorder; M54.50 Low back pain, unspecified; G89.29 Other chronic pain; G40.909 Epilepsy, unspecified, not intractable, without status epilepticus; Z88.8 Allergy status to other drugs, medicaments and biological substances
CPT/HCPCS: 36415; 80053; 85027; 86480; 86780; 87635